=== PATIENT | male | born 1965 | race Caucasian/White ===

== ENCOUNTER 2019-07-16 16:14 | Emergency (ER) | payer OTHER ==
[2019-07-16 16:25] VITALS: BP 115/71; PULSE 89; TEMP 98.7; BMI 28.7
--- NOTE | 2019-07-16 16:26 | PDOC ---
Rapid Medical Evaluation Chief Complaint: Pain, Acute Time Seen by Provider: 07/16/19 16:22 Medical Evaluation: 07/16/19 16:22 I have performed a brief in-person evaluation of this patient. The patient presents with a chief complaint of:right hip /groin pain x 1 week, no known injury-denies bulging , performs heavy lifting Pertinent physical exam findings: walks with limp , I have ordered the following: nothing The patient will proceed to the ED for further evaluation. 07/16/19 16:25 Discharge Disposition - Diagnosis Pain - Referrals - Patient Instructions - Post Discharge Activity
--- NOTE | 2019-07-16 17:42 | PDOC ---
History of Present Illness - General Chief Complaint: Pain, Acute Stated Complaint: PAIN Time Seen by Provider: 07/16/19 16:22 - History of Present Illness Initial Comments: 07/16/19 17:38 54-year-old male without comorbidities presents for evaluation of right hip pain x2 weeks without systemic symptoms. Pain increases with prolonged sitting and going to stand. He points to his right groin as the area of his discomfort Past History - Past Medical History Allergies/Adverse Reactions: Allergies Allergy/AdvReac Type Severity Reaction Status Date / Time No Known Allergies Allergy Verified 07/16/19 16:25 Home Medications: Ambulatory Orders metFORMIN HCL [Glucophage -] 500 mg PO BID #14 tablet 07/16/19 COPD: No Diabetes: Yes - Psycho Social/Smoking Cessation Hx Smoking History: Never smoked Hx Alcohol Use: No Drug/Substance Use Hx: No Review of Systems - Review of Systems Constitutional: No: Fever Musculoskeletal: Yes: Joint Pain *Physical Exam - Vital Signs Last Vital Signs Temp Pulse Resp BP Pulse Ox 98.7 F 89 16 115/71 98 07/16/19 16:17 07/16/19 16:17 07/16/19 16:17 07/16/19 16:17 07/16/19 16:17 - Physical Exam Comments: 07/16/19 17:40 Right hip skin color and temperature normal range of motion is full and nonpainful. 5 out of 5 strength in all planes negative straight leg raise test mild tenderness over the hip flexor tendon neurovascular intact thigh and calf soft and nontender ED Treatment Course - RADIOLOGY Radiology Studies Ordered: Category Date Time Status PELVIS [RAD] Stat Radiology 07/16/19 17:10 Taken Medical Decision Making - Medical Decision Making 07/16/19 17:40 X-rays of the right hip show arthritis most likely an exacerbation of hip arthritis will refer to orthopedic surgery 07/16/19 17:41 Of note patient wants his blood sugar tested we will do fingerstick Discharge - Discharge Information Problems reviewed: Yes Clinical Impression/Diagnosis: Pain, Osteoarthritis of right hip, Diabetes Condition: Stable Disposition: HOME - Admission No - Follow up/Referral Referrals: Dominick Price DO [Staff Physician] - Guzman Otto [Non Staff, Medical] - - Patient Discharge Instructions Patient Printed Discharge Instructions: Osteoarthritis, DI for Osteoarthritis, Type 2 Diabetes, DI for Diabetes Type 2 Additional Instructions: Return to the emergency room for worsening symptoms. Tylenol and Motrin as directed for pain. Follow-up with orthopedic surgery in 2 to 3 days without fail for further evaluation and treatment options. You also have diabetes. I started you on a 7-day course of metformin. This needs to be taken as prescribed. Without fail you must follow-up with an internal medicine doctor I have recommended one for you. Please follow-up in 2 to 3 days without fail return to the emergency room for further issues - Post Discharge Activity
== END 2019-07-16 18:05 | disposition home or self-care (01) ==
LOC: JERFT 16:14
DX: M16.11 Unilateral primary osteoarthritis, right hip (principal); E11.9 Type 2 diabetes mellitus without complications; Z79.84 Long term (current) use of oral hypoglycemic drugs
CPT/HCPCS: 72170-TC-FY; 82962; 99281-25